=== PATIENT | male | born 1995 | race African-American/Black ===

== ENCOUNTER 2024-01-13 23:35 | Emergency (ER) | payer OTHER, SELFPAY ==
--- NOTE | ~2024-01-13 | XR_ITS ---
Left Hand Technique: PA, oblique, and lateral views were obtained. Clinical History: Laceration first interspace Findings: No acute fracture or dislocation is seen. Osseous alignment is anatomic. Joint spaces are p reserved. Possible soft tissue laceration of the first interspace region.. Impression: No osseous or articular abnormality. Probable laceration first interspace region. Reviewed, dictated and finalized at location . OL DIRECTOR Impression: No osseous or articular abnormality. Probable laceration first interspace region.
[2024-01-13 23:58] VITALS: BP 152/72; PULSE 62; RESP 16; TEMP 36.4; O2SAT 100
--- NOTE | 2024-01-14 02:05 | ED.WOUNDLAC ---
HPI - Wound/Laceration General Chief Complaint: Wound/Laceration Stated Complaint: laceration Time Seen by Provider: 01/14/24 01:58 History of Present Illness HPI narrative: 28-year-old male presents to the emergency department for laceration between his left 1st and 2nd fingers. Patient states this occurred a couple hours prior to arrival while at work. States he was cleaning a broiler alert accidentally cut himself on the broiler. He denies use of anticoagulations. Last tetanus unknown. Denies difficulty with range of motion his fingers. Review of Systems Review of Systems: CONSTITUTIONAL: Denies fever, chills, or sweats. EYES: Denies visual changes, redness, or discharge. ENT: Denies rhinorrhea, congestion, sore throat, or otalgia. CARDIOVASCULAR: Denies chest pain, palpitations, or edema. RESPIRATORY: Denies cough or dyspnea. GASTROINTESTINAL: Denies abdominal pain, nausea, vomiting, or diarrhea. GENITOURINARY: Denies dysuria or hematuria. SKIN: See HPI MUSCULOSKELETAL: Denies back pain, joint pain, or myalgia. NEUROLOGIC: Denies headache, numbness, or weakness. PSYCHIATRIC: Denies anxiety or depression. Exam Narrative: GENERAL: Well-appearing, well-nourished, and in no acute distress. HEAD: Normocephalic, atraumatic. NECK: Supple. CHEST: Clear to auscultation. No respiratory distress. HEART: Regular rate and rhythm. No murmur heard. Normal peripheral pulses. EXTREMITIES: Normal range of motion. No edema. SKIN: Left hand with a less than 0.5 cm superficial laceration to the webspace between the 1st and 2nd digits. Bleeding controlled. No deep structures or foreign bodies visualized. Full range of motion of all fingers. Radial pulse 2 +. Cap refill less than 2. Sensation intact. NEURO: No focal deficits. Alert and oriented x3 Course Vital Signs Vital signs: Vital Signs Temperature 97.6 F 01/13/24 23:58 Pulse Rate 62 01/13/24 23:58 Respiratory Rate 16 01/13/24 23:58 Blood Pressure 152/72 H 01/13/24 23:58 Pulse Oximetry 100 01/13/24 23:58 Oxygen Delivery Room Air 01/13/24 23:58 Temperature 97.6 F 01/13/24 23:58 Pulse Rate 62 01/13/24 23:58 Respiratory Rate 16 01/13/24 23:58 Blood Pressure 152/72 H 01/13/24 23:58 Pulse Oximetry 100 01/13/24 23:58 Oxygen Delivery Room Air 01/13/24 23:58 Procedures Laceration Laceration 1: Date: 01/14/24 Time: 02:43 Site: upper extremity and hand Side (If applicable): left Size (cm): 0.5 Description: linear Depth: simple, single layer Local Anesthetic: lidocaine 1% Amount of anesthesia used (mL): 1 Pre-repair: wound explored, irrigated and irrigated extensively ====== Skin Level ====== Skin layer closed with: nylon Size (cm): 5-0 Number of sutures: 1 Technique: simple, interrupted ====== Subcutaneous Layer ====== ====== Muscle Layer ====== ====== Tendon Layer ====== MDM - Wound/Laceration MDM Narrative Medical decision making narrative: 28-year-old male presents to emergency department for laceration between his left 1st and 2nd digits that occurred a couple hours prior to arrival. See HPI for further history. Triage vital significant for elevated blood pressure, otherwise unremarkable. Exam is significant for the above. Tetanus updated. Laceration irrigated extensively with normal saline. Local anesthetic and 1 suture applied with good approximation. Patient will be discharged home with PCP follow-up and advised to have sutures removed in 7 days. Strict ED return precautions discussed. He is agreeable to plan verbalized understanding. Discharged in stable condition. Discharge Plan Discharge Clinical Impression: Laceration Patient Disposition: Home, Self-Care Condition: Stable Instructions: Antibiotic Form, Laceration (ED) Additional Instructions: You were evaluated in the emergency
[2024-01-14] MEDS: TETANUS,DIPHTHERIA,AC PERTUSSIS ADULT (0.5 ML) BOOSTRIX IM (03:23)
== END 2024-01-14 03:25 | disposition home or self-care (01) ==
LOC: ANHED 01-14 02:22
PROVIDERS: Emergency Provider Physician Assistant
DX: S61.012A Laceration without foreign body of left thumb without damage to nail, initial encounter (principal); S61.211A Laceration without foreign body of left index finger without damage to nail, initial encounter; Z23 Encounter for immunization; W45.8XXA Other foreign body or object entering through skin, initial encounter; Y99.0 Civilian activity done for income or pay
CPT/HCPCS: 12001; 73130; 90471; 90715; 99283